=== PATIENT | female | born 1975 | race Caucasian/White ===

== ENCOUNTER 2016-09-23 23:04 | Emergency (ER) | payer BC ==
[2016-09-23] MEDS ORDERED: BABY ASPIRIN 81 MG CHEW PO ONE (23:20)
[2016-09-23] MEDS ORDERED: Nitrostat 0.4 MG (ED) SL ONE ×2 (23:20→23:34)
[2016-09-23 23:22] VITALS: O2SAT 98
[2016-09-23] MEDS ORDERED: GI COCKTAIL 60ML (Belladonn/Phenobarb/Lidoc PO ONE (23:23)
--- NOTE | 2016-09-23 23:29 | ERPHSYRPT ---
- History of Present Illness Time Seen by Provider: 09/23/16 23:11 Source: patient Exam Limitations: no limitations Patient Subjective Stated Complaint: PT STATES AFTER WORK THIS EVENING SHE BEGAN HAVING PAIN IN THE CENTER OF HER CHEST THAT RADIATES TO HER BACK. PT COMPLAINS OF SOB. Triage Nursing Assessment: PT IS AOX3, AMBULATORY TO COT WITH NO DIFFICULTIES, RESPS ARE EASY AND NON LABORED, SKIN IS PWD, PULSES ARE STRONG AND EQUAL, HEART SOUNDS ARE NORMAL, ABDOMEN IS SOFT AND NONTENDER. Physician History: FOR THE PAST 20 MINUTES PT HAS HAD SHARP MID ANTERIOR CHEST PAIN RADIATING TO THE BACK WITH NAUSEA AND SHORTNESS OF AIR. PT DENIES FEVER, VOMITING, DIAPHORESIS. Allergies/Adverse Reactions: No Known Drug Allergies Allergy (Verified 09/23/16 23:22) Home Medications: Levothyroxine Sodium 50 Mcg [Synthroid 50 Mcg] 50 mcg PO DAILY 11/16/12 [ History] Alprazolam 0.25 mg [xanAX 0.25 MG] 0.25 mg PO TID PRN 09/23/16 [History] Dextroamphetamine/Amphetamine [Adderall 20 mg Tablet] 20 mg PO DAILY 09/23/16 [ History] Lisinopril 5 mg PO DAILY 09/23/16 [History] Meloxicam [Mobic] 15 mg PO DAILY PRN 09/23/16 [History] Hx Tetanus, Diphtheria Vaccination/Date Given: Yes Hx Influenza Vaccination/Date Given: No Hx Pneumococcal Vaccination/Date Given: No Immunizations Up to Date: Yes - Review of Systems Constitutional: No Fever Respiratory: Dyspnea Cardiac: Chest Pain Abdominal/Gastrointestinal: Nausea, No Abdominal Pain, No Vomiting Endocrine: No Excessive Sweating All Other Systems: Reviewed and Negative - Past Medical History Pertinent Past Medical History: Yes Neurological History: Migraines ENT History: No Pertinent History Cardiac History: No Pertinent History Respiratory History: Asthma Endocrine Medical History: Hypothyroidism Musculoskeletal History: No Pertinent History GI Medical History: No Pertinent History History: No Pertinent History Psycho-Social History: Depression Female Reproductive Disorders: Abnormal Uterine Bleeding - Past Surgical History Past Surgical History: Yes Neuro Surgical History: No Pertinent History Cardiac: No Pertinent History Respiratory: No Pertinent History Gastrointestinal: No Pertinent History Genitourinary: No Pertinent History Musculoskeletal: Orthopedic Surgery Female Surgical History: Section Other Surgical History: THERMAL ABLATION - Social History Smoking Status: Former smoker How long have you smoked: 20 YEARS Exposure to second hand smoke: Yes Drug Use: none Patient Lives Alone: No - Female History Hx Last Menstrual Period: ABLATION Hx Now: No - Nursing Vital Signs Nursing Vital Signs: Initial Vital Signs Temperature 98.3 F Temperature Source Oral Pulse Rate [] 94 Pulse Rate 92 Respiratory Rate 20 Blood Pressure [] 134/83 Pain Intensity 0 - Physical Exam General Appearance: alert, anxiety Eye Exam: PERRL/EOMI Ears, Nose, Throat Exam: TMs normal, moist mucous membranes, pharyngeal erythema Neck Exam: normal inspection Respiratory Exam: lungs clear Cardiovascular Exam: normal heart sounds Gastrointestinal/Abdomen Exam: soft, normal bowel sounds Back Exam: normal range of motion Extremity Exam: normal inspection Neurologic Exam: alert, cooperative Skin Exam: warm, dry SpO2 Interpretation: normal SpO2: 98 Oxygen Delivery: Room Air - Course Nursing assessment & vital signs reviewed: Yes EKG Interpreted by Me: RATE (92), Sinus Rhythm, NORMAL AXIS, NORMAL INTERVALS - Radiology Exams Chest X-ray Interpretation: Interpreted by me, No Pneumonia Ordered Tests: Active Orders 24 hr Category Date Time Status Clean Catch Urine Specimen STAT Care 09/23/16 23:20 Active EKG-ER Only STAT Care 09/23/16 23:20 Active IV Insertion STAT Care 09/23/16 23:20 Active CHEST 1 VIEW (PORTABLE) Stat Exams 09/23/16 23:21 Ordered AMYLASE Stat Lab 09/23/16 23:30 Completed CBC W DIFF Stat Lab 09/23/16 23:30 Completed CMP Stat Lab 09/23/16 23:30 Completed LIPASE Stat Lab 09/23/16 23:30 Completed MAGNESIUM Stat Lab 09/23/16 23:30 Completed NT PRO BNP Stat Lab 09/23/16 23:30 Completed TROPONIN Q3H Lab 09/23/16 23:30 Completed TROPONIN Q3H Lab 09/24/16 02:30 Ordered TROPONIN Q3H Lab 09/24/16 05:30 Ordered TROPONIN Q3H Lab 09/24/16 08:30 Ordered TROPONIN Q3H Lab 09/24/16 11:30 Ordered UA W/ MICROSCOPIC Stat Lab 09/23/16 23:50 Completed Urine Triage Profile Stat Lab 09/23/16 23:50 Completed Medication Summary Discontinued Medications Generic Name Dose Route Start Last Admin Trade Name Freq PRN Reason Stop Dose Admin Al Hydrox/Mg Hydrox/Simethicone Confirm 09/23/16 23:34 Maalox Es 30 Ml Unit Dose Administered 09/23/16 23:35 Dose 30 ml .ROUTE .STK-MED ONE Aspirin 324 mg 09/23/16 23:20 09/23/16 23:39 Baby Aspirin 81 Mg Chew PO 09/23/16 23:21 324 mg STAT ONE Administration Aspirin Confirm 09/23/16 23:33 Baby Aspirin 81 Mg Chew Administered 09/23/16 23:34 Dose 324 mg .ROUTE .STK-MED ONE Belladonna Alkaloids/Phenobarbital 60 ml 09/23/16 23:23 09/23/16 23:39 Gi Cocktail 60ml (Belladonn/Phenobarb/Lidoc* PO 09/23/16 23:24 60 ml STAT ONE Administration Belladonna Alkaloids/Phenobarbital Confirm 09/23/16 23:35 Donnatol Liquid Administered 09/23/16 23:36 Dose 64.8 mg .ROUTE .STK-MED ONE Lidocaine HCl Confirm 09/23/16 23:34 Xylocaine Hcl Viscous * Administered 09/23/16 23:35 Dose 20 ml .ROUTE .STK-MED ONE Nitroglycerin 0.4 mg 09/23/16 23:20 09/23/16 23:39 Nitrostat 0.4 Mg (Ed) SL 09/23/16 23:21 0.4 mg STAT ONE Administration Nitroglycerin Confirm 09/23/16 23:34 Nitrostat 0.4 Mg (Ed) Administered 09/23/16 23:35 Dose 0.4 mg SL .STK-MED ONE Potassium Chloride 10 meq 09/24/16 00:05 09/24/16 00:12 Klor Con 10 Meq PO 09/24/16 00:06 10 meq STAT ONE Administration Potassium Chloride Confirm 09/24/16 00:11 Klor Con 10 Meq Administered 09/24/16 00:12 Dose 10 meq PO .STK-MED ONE Lab/Rad Data: Laboratory Result Diagrams 09/23/16 23:30 09/23/16 23:30 Laboratory Results 09/23/16 09/23/16 09/23/16 Range/Units 23:50 23:50 23:30 WBC (4.0-10.5) K/mm3 RBC (4.1-5.4) M/mm3 Hgb (12.0-16.0) gm/dl Hct (35-47) % MCV (78-100) fl MCH (26-32) pg MCHC (32-36) g/dl RDW (11.5-14.0) % Plt Count (150-450) K/mm3 MPV (6-9.5) fl Gran % (36.0-66.0) % Lymphocytes % (24.0-44.0) % Monocytes % (0.0-12.0) % Eosinophils % (0.00-5.0) % Basophils % (0.0-0.4) % Basophils # (0-0.4) Sodium (136-145) mEq/L Potassium (3.5-5.1) mEq/L Chloride (98-107) mEq/L Carbon Dioxide (21-32) mEq/L Anion Gap (5-15) MEQ/L BUN (9-20) mg/dL Creatinine (0.55-1.30) mg/dl Estimated GFR ML/MIN Glucose (70-110) MG/DL Calcium (8.5-10.1) mg/dL Magnesium (1.8-2.4) mg/dL Total Bilirubin (0.2-1.0) mg/dL AST (15-37) U/L ALT (12-78) U/L Alkaline Phosphatase (46-116) U/L Troponin I < 0.017 (0.000-0.056) ng/ml NT-Pro-B Natriuret Pep (0-125) pg/ml Serum Total Protein (6.4-8.2) gm/dL Albumin (3.4-5.0) g/dL Amylase (25-115) U/L Lipase (73-393) U/L Ur Collection Type CLEAN CATCH Urine Color YELLOW (YELLOW) Urine Appearance CLEAR (CLEAR) Urine pH 5.5 (5-6) Ur Specific [place] 1.025 (1.005-1.025) Urine Protein NEGATIVE (Negative) Urine Glucose (UA) NEGATIVE (NEGATIVE) mg/dL Urine Ketones NEGATIVE (NEGATIVE) Urine Nitrite NEGATIVE (NEGATIVE) Urine Bilirubin NEGATIVE (NEGATIVE) Urine Urobilinogen 0.2 (0-1) mg/dL Urine WBC (Auto) NEGATIVE (NEGATIVE) Urine RBC (Auto) SMALL (0-5) Jhony/ul Urine Microscopic RBC 2-5 (0-2) /HPF Ur Epithelial Cells FEW (FEW) /HPF Urine Bacteria RARE (NEGATIVE) /HPF Urine Mucus SLIGHT (NEGATIVE) /HPF Urine Opiates Level NEG. (NEGATIVE) Ur Methadone NEG. (NEGATIVE) Urine Barbiturates NEG. (NEGATIVE) Ur Phencyclidine (PCP) NEG. (NEGATIVE) Urine Amphetamine POS. (NEGATIVE) U Benzodiazepine Level NEG. (NEGATIVE) Urine Cocaine NEG. (NEGATIVE) Urine Marijuana (THC) NEG. (NEGATIVE) Specimen Received [id number] 09/23/16 09/23/16 Range/Units 23:30 23:30 WBC 11.4 H (4.0-10.5) K/mm3 RBC 4.07 L (4.1-5.4) M/mm3 Hgb 13.1 (12.0-16.0) gm/dl Hct 39.7 (35-47) % MCV 97.5 (78-100) fl MCH 32.1 H (26-32) pg MCHC 33.0 (32-36) g/dl RDW 12.9 (11.5-14.0) % Plt Count 333 (150-450) K/mm3 MPV 8.7 (6-9.5) fl Gran % 52.9 (36.0-66.0) % Lymphocytes % 33.5 (24.0-44.0) % Monocytes % 8.8 (0.0-12.0) % Eosinophils % 4.4 (0.00-5.0) % Basophils % 0.4 (0.0-0.4) % Basophils # 0.05 (0-0.4) Sodium 143 (136-145) mEq/L Potassium 3.3 L (3.5-5.1) mEq/L Chloride 106 (98-107) mEq/L Carbon Dioxide 21.8 (21-32) mEq/L Anion Gap 18.5 H (5-15) MEQ/L BUN 13 (9-20) mg/dL Creatinine 0.89 (0.55-1.30) mg/dl Estimated GFR > 60 ML/MIN Glucose 69 L (70-110) MG/DL Calcium 9.0 (8.5-10.1) mg/dL Magnesium 2.3 (1.8-2.4) mg/dL Total Bilirubin 0.30 (0.2-1.0) mg/dL AST 69 H (15-37) U/L ALT 54 (12-78) U/L Alkaline Phosphatase 67 (46-116) U/L Troponin I (0.000-0.056) ng/ml NT-Pro-B Natriuret Pep 16 (0-125) pg/ml Serum Total Protein 7.4 (6.4-8.2) gm/dL Albumin 3.6 (3.4-5.0) g/dL Amylase 34 (25-115) U/L Lipase 103 (73-393) U/L Ur Collection Type Urine Color (YELLOW) Urine Appearance (CLEAR) Urine pH (5-6) Ur Specific [place] (1.005-1.025) Urine Protein (Negative) Urine Glucose (UA) (NEGATIVE) mg/dL Urine Ketones (NEGATIVE) Urine Nitrite (NEGATIVE) Urine Bilirubin (NEGATIVE) Urine Urobilinogen (0-1) mg/dL Urine WBC (Auto) (NEGATIVE) Urine RBC (Auto) (0-5) Jhony/ul Urine Microscopic RBC (0-2) /HPF Ur Epithelial Cells (FEW) /HPF Urine Bacteria (NEGATIVE) /HPF Urine Mucus (NEGATIVE) /HPF Urine Opiates Level (NEGATIVE) Ur Methadone (NEGATIVE) Urine Barbiturates (NEGATIVE) Ur Phencyclidine (PCP) (NEGATIVE) Urine Amphetamine (NEGATIVE) U Benzodiazepine Level (NEGATIVE) Urine Cocaine (NEGATIVE) Urine Marijuana (THC) (NEGATIVE) Specimen Received - Progress Progress Note: 09/24/16 00:43 PT FEELS BETTER AFTER THE GI COCKTAIL. - Departure Time of Disposition: 00:59 Departure Disposition: Home Clinical Impression: CHEST PAIN Condition: Fair Critical Care Time: No Referrals: CADE SALAZAR [Primary Care Provider] - Instructions: Chest Pain Additional Instructions: FOLLOW UP WITH PRIVATE DOCTOR TOMORROW.
[2016-09-23 23:33] LABS: BASOPHIL % 0.4 % (0.0-0.4); Eosinophil % 4.4 % (0.00-5.0); Granulocytes % 52.9 % (36.0-66.0); Lymphocytes % 33.5 % (24.0-44.0); Mean Cell Volume 97.5 fl (78-100); Mean Platelet Volume 8.7 fl (6-9.5); Monocytes % 8.8 % (0.0-12.0); Platelet Count 333 K/mm3 (150-450); Red Blood Count 4.07 M/mm3 (4.1-5.4); Red Cell Distribution Width 12.9 % (11.5-14.0); White Blood Count 11.4 K/mm3 (4.0-10.5)
[2016-09-23] MEDS ORDERED: BABY ASPIRIN 81 MG CHEW ONE (23:33)
[2016-09-23] MEDS ORDERED: XYLOCAINE HCl Viscous ONE (23:34)
[2016-09-23] MEDS ORDERED: MAALOX ES 30 ML UNIT DOSE ONE (23:34)
[2016-09-23] MEDS ORDERED: Donnatol Liquid ONE (23:35)
[2016-09-23 23:57] VITALS: BP 134/83; PULSE 92
[2016-09-24 00:02] LABS: ALBUMIN 3.6 g/dL (3.4-5.0); ALKALINE PHOSPHATASE 67 U/L (46-116); ANION GAP 18.5 MEQ/L (5-15); BLOOD UREA NITROGEN 13 mg/dL (9-20); CHLORIDE 106 mEq/L (98-107); Carbon Dioxide 21.8 mEq/L (21-32); Glucose 69 MG/DL (70-110); LIPASE 103 U/L (73-393); MAGNESIUM 2.3 mg/dL (1.8-2.4); Potassium 3.3 mEq/L (3.5-5.1); SGOT/AST 69 U/L (15-37); SGPT/ALT 54 U/L (12-78); SODIUM 143 mEq/L (136-145); Total Protein 7.4 gm/dL (6.4-8.2)
[2016-09-24 00:04] LABS: Mean Corpuscular Hemoglobin 32.1 pg (26-32)
[2016-09-24] MEDS ORDERED: Klor Con 10 MEQ PO ONE ×2 (00:05→00:11)
[2016-09-24 00:57] LABS: COMPLETE URINE MICROSCOPIC? YES; Collection Type CLEAN CATCH; Mucus SLIGHT /HPF (NEGATIVE); Ph 5.5 (5-6)
[2016-09-24 00:58] LABS: ADD URINE CULTURE? NO (NO); Bacteria RARE /HPF (NEGATIVE); Epithelial Cells FEW /HPF (FEW)
--- NOTE | 2016-09-24 07:47 | XRAY ---
Indication: Short of breath and chest pain. Comparison: None Portable apical lordotic chest is negative for focal infiltrate, consolidation, or large effusion. Heart is not enlarged. Bony thorax intact. Impression: Nonacute chest.
== END 2016-09-24 01:15 | disposition home or self-care (01) ==
LOC: ED 23:04
DX: R07.9 Chest pain, unspecified (principal); R06.00 Dyspnea, unspecified; R11.0 Nausea
CPT/HCPCS: 36000; 36415; 71010; 80053; 80307; 81000; 82150; 83690; 83735; 83880; 84484; 85025; 93005; 99285; A9270-GY

== ENCOUNTER 2017-11-27 04:29 | Emergency (ER) | payer BC ==
[2017-11-27 04:51] VITALS: O2SAT 100
[2017-11-27] MEDS ORDERED: Sodium Chloride 0.9% 1000 ML 1,000 ML IV STA (05:09)
--- NOTE | 2017-11-27 05:09 | ERPHSYRPT ---
- History of Present Illness Time Seen by Provider: 11/27/17 04:53 Source: patient Exam Limitations: no limitations Patient Subjective Stated Complaint: pt stated that she came home from work and drank a rum and coke but then started not feeling right, became diaphoretic and then went to the restroom and felt like she was going to vomit and like she was going to pass out, legs became extremely weak and couldn't move Triage Nursing Assessment: pt stated that she came home from work and drank a rum and coke but then started not feeling right, became diaphoretic and then went to the restroom and felt like she was going to vomit and like she was going to pass out, legs became extremely weak and couldn't move, screamed for but he states she was not very loud, last BM yesterday, Accucheck 129, vitals wnl, no difficulties with strength, gait steady, blood pressure at time of incident 100/56 and gave her some honey and animal crackers and her BP went up to 123/75, pt reports having a recurrent pain across her chest and sternum in the recent past and she was feeling it tonite. Physician History: The patient is a 42-year-old female with her complaining that she became sweaty, nauseated, felt like passing out, and very pale immediately after urinating while on the toilet this morning. She came home from work at 2 AM and couldn't get to sleep. She tried playing Candy crush on the phone. She then took 2-1/2 shots of Capt. and Coke. She sat on the toilet to urinate when the problem hit her. She tried standing up after becoming sweaty. It was hard for her to stand and she felt like she was going to pass out. She looked on the Internet to see what might be the cause. They found a number of bad things and her wanted her to be checked out. Her gave her animal crackers and honey. Her took her blood pressure immediately after the event and found it to be low with a low heart rate. She now is feeling much better. Her color is back. Her past medical history is significant for hypertension, hypothyroidism, and anxiety. Timing/Duration: today, resolved prior to arrival, sudden, improved Severity: moderate Modifying Factors: Improves With: eating Associated Symptoms: diaphoresis, syncope (near) Allergies/Adverse Reactions: No Known Drug Allergies Allergy (Verified 11/27/17 04:51) Home Medications: Levothyroxine Sodium 50 Mcg [Synthroid 50 Mcg] 50 mcg PO DAILY 11/16/12 [ History] Alprazolam 0.25 mg [xanAX 0.25 MG] 0.25 mg PO TID PRN 09/23/16 [History] Dextroamphetamine/Amphetamine [Adderall 20 mg Tablet] 30 mg PO DAILY 09/23/16 [ History] Lisinopril 5 mg PO DAILY 09/23/16 [History] Meloxicam [Mobic] 15 mg PO DAILY PRN 09/23/16 [History] Hx Tetanus, Diphtheria Vaccination/Date Given: Yes Hx Influenza Vaccination/Date Given: No Hx Pneumococcal Vaccination/Date Given: No - Review of Systems Constitutional: No Fever, No Chills Eyes: No Symptoms Ears, Nose, & Throat: No Symptoms Respiratory: No Cough, No Dyspnea Cardiac: Syncope Abdominal/Gastrointestinal: Nausea Genitourinary Symptoms: No Dysuria Musculoskeletal: No Back Pain, No Neck Pain Skin: No Rash Neurological: No Dizziness, No Focal Weakness, No Sensory Changes Psychological: No Symptoms Endocrine: No Symptoms Hematologic/Lymphatic: No Symptoms Immunological/Allergic: No Symptoms All Other Systems: Reviewed and Negative - Past Medical History Pertinent Past Medical History: Yes Neurological History: Migraines ENT History: No Pertinent History Cardiac History: No Pertinent History Respiratory History: Asthma Endocrine Medical History: Hypothyroidism Musculoskeletal History: No Pertinent History GI Medical History: No Pertinent History History: No Pertinent History Psycho-Social History: Depression Female Reproductive Disorders: Abnormal Uterine Bleeding Other Medical History: hashimotos - Past Surgical History Past Surgical History: Yes Neuro Surgical History: No Pertinent History Cardiac: No Pertinent History Respiratory: No Pertinent History Gastrointestinal: No Pertinent History Genitourinary: No Pertinent History Musculoskeletal: Orthopedic Surgery Female Surgical History: Section Other Surgical History: THERMAL ABLATION, cysts removed from head - Social History Smoking Status: Current every day smoker How long have you smoked: 20 YEARS Exposure to second hand smoke: Yes Drug Use: none Patient Lives Alone: No - Female History Hx Now: No (ablasion and tubal) - Nursing Vital Signs Nursing Vital Signs: Initial Vital Signs Temperature 97.7 F 11/27/17 04:35 Pulse Rate 94 H 07/31/18 04:35 Blood Pressure 136/71 11/27/17 04:35 O2 Sat by Pulse Oximetry 100 11/27/17 04:35 Pain Scale Pain Intensity 0 - Physical Exam General Appearance: no apparent distress, alert Eye Exam: PERRL/EOMI, eyes nml inspection Ears, Nose, Throat Exam: normal ENT inspection, TMs normal, pharynx normal, moist mucous membranes Neck Exam: normal inspection, non-tender, supple, full range of motion Respiratory Exam: normal breath sounds, lungs clear, No respiratory distress Cardiovascular Exam: regular rate/rhythm, normal heart sounds, normal peripheral pulses Gastrointestinal/Abdomen Exam: soft, normal bowel sounds, No tenderness, No mass Pelvic Exam: not done Rectal Exam: not done Back Exam: normal inspection, normal range of motion, No CVA tenderness, No vertebral tenderness Extremity Exam: normal inspection, normal range of motion, pelvis stable Neurologic Exam: alert, oriented x 3, cooperative, normal mood/affect, nml cerebellar function, nml station & gait, sensation nml, No motor deficits Skin Exam: normal color, warm, dry, No rash Lymphatic Exam: No adenopathy SpO2 Interpretation: normal SpO2: 100 Oxygen Delivery: Room Air - Course EKG Interpreted by Me: RATE, Sinus Rhythm, NORMAL AXIS, NORMAL INTERVALS, NORMAL QRS, NORMAL ST-T, Other (no change comp to EKG 09/23/16.) - Radiology Exams Chest X-ray Interpretation: Interpreted by me, Negative (stable nonacute chest. comp 2v chest 05/24/17.) Ordered Tests: Active Orders 24 hr Category Date Time Status Clean Catch Urine Specimen STAT Care 11/27/17 05:09 Ordered EKG-ER Only STAT Care 11/27/17 05:09 Ordered IV Insertion STAT Care 11/27/17 05:09 Ordered CHEST 2 VIEWS (PA AND LAT) Stat Exams 11/27/17 05:10 Ordered BMP Stat Lab 11/27/17 05:09 Ordered CBC W DIFF Stat Lab 11/27/17 05:09 Ordered CULTURE,URINE Stat Lab 11/27/17 05:20 Received HCG QUALITATIVE,SERUM Stat Lab 11/27/17 Ordered TROPONIN Q3H Lab 11/27/17 05:15 Ordered TROPONIN Q3H Lab 11/27/17 08:15 Ordered TROPONIN Q3H Lab 11/27/17 11:15 Ordered TROPONIN Q3H Lab 11/27/17 14:15 Ordered TROPONIN Q3H Lab 11/27/17 17:15 Ordered UA W/ MICROSCOPIC Stat Lab 11/27/17 05:20 Completed Medication Summary Generic Name Dose Route Start Last Admin Trade Name Andrea PRN Reason Stop Dose Admin Sodium Chloride 1,000 mls @ 999 mls/hr 11/27/17 05:09 11/27/17 05:18 Sodium Chloride 0.9% 1000 Ml IV 11/27/17 06:09 999 mls/hr .Q1H1M STA Administration Discontinued Medications Generic Name Dose Route Start Last Admin Trade Name Freq PRN Reason Stop Dose Admin Sodium Chloride Confirm 11/27/17 05:15 Sodium Chloride 0.9% 1000 Ml Administered 11/27/17 05:16 Dose 1,000 mls @ ud .ROUTE .STK-MED ONE Lab/Rad Data: Laboratory Result Diagrams 11/27/17 05:00 11/27/17 05:00 Laboratory Results 11/27/17 11/27/17 11/27/17 Range/Units 05:20 05:00 05:00 WBC (4.0-10.5) K/mm3 RBC (4.1-5.4) M/mm3 Hgb (12.0-16.0) gm/dl Hct (35-47) % MCV (78-100) fl MCH (26-32) pg MCHC (32-36) g/dl RDW (11.5-14.0) % Plt Count (150-450) K/mm3 MPV (6-9.5) fl Gran % (36.0-66.0) % Eos # (Auto) (0-0.5) Absolute Lymphs (auto) (1.0-4.6) Absolute Monos (auto) (0.0-1.3) Lymphocytes % (24.0-44.0) % Monocytes % (0.0-12.0) % Eosinophils % (0.00-5.0) % Basophils % (0.0-0.4) % Absolute Granulocytes (1.4-6.9) Basophils # (0-0.4) Sodium 141 (137-145) mmol/L Potassium 3.6 (3.5-5.1) mmol/L Chloride 102 (98-107) mmol/L Carbon Dioxide 26 (22-30) mmol/L Anion Gap 16.5 H (5-15) MEQ/L BUN 19 H (7-17) mg/dL Creatinine 0.86 (0.52-1.04) mg/dL Estimated GFR > 60.0 ML/MIN Glucose 102 (74-106) mg/dL Calcium 9.6 (8.4-10.2) mg/dL Serum , Qual NEGATIVE (Negative) Ur Collection Type CCMS Urine Color YELLOW (YELLOW) Urine Appearance CLEAR (CLEAR) Urine pH 6.0 (5-6) Ur Specific [place] 1.015 (1.005-1.025) Urine Protein 30 (Negative) Urine Ketones NEGATIVE (NEGATIVE) Urine Blood TRACE NON-HEM (0-5) Jhony/ul Urine Nitrite NEGATIVE (NEGATIVE) Urine Bilirubin NEGATIVE (NEGATIVE) Urine Urobilinogen NORMAL (0-1) mg/dL Ur Leukocyte Esterase NEGATIVE (NEGATIVE) Urine Microscopic RBC 0-2 (0-2) /HPF Urine Microscopic WBC 0-2 (0-5) /HPF Ur Epithelial Cells MODERATE (FEW) /HPF Urine Bacteria RARE (NEGATIVE) /HPF Urine Mucus SLIGHT (NEGATIVE) /HPF Urine Culture Reflexed YES (NO) Urine Glucose NEGATIVE (NEGATIVE) mg/dL Specimen Received 11-27-17 [id number] 11/27/17 Range/Units 05:00 WBC 14.9 H (4.0-10.5) K/mm3 RBC 4.71 (4.1-5.4) M/mm3 Hgb 15.4 (12.0-16.0) gm/dl Hct 46.5 (35-47) % MCV 98.7 (78-100) fl MCH 32.7 H (26-32) pg MCHC 33.1 (32-36) g/dl RDW 13.5 (11.5-14.0) % Plt Count 373 (150-450) K/mm3 MPV 9.2 (6-9.5) fl Gran % 67.2 H (36.0-66.0) % Eos # (Auto) 0.29 (0-0.5) Absolute Lymphs (auto) 3.72 (1.0-4.6) Absolute Monos (auto) 0.88 (0.0-1.3) Lymphocytes % 24.9 (24.0-44.0) % Monocytes % 5.9 (0.0-12.0) % Eosinophils % 1.9 (0.00-5.0) % Basophils % 0.1 (0.0-0.4) % Absolute Granulocytes 10.02 H (1.4-6.9) Basophils # 0.02 (0-0.4) Sodium (137-145) mmol/L Potassium (3.5-5.1) mmol/L Chloride (98-107) mmol/L Carbon Dioxide (22-30) mmol/L Anion Gap (5-15) MEQ/L BUN (7-17) mg/dL Creatinine (0.52-1.04) mg/dL Estimated GFR ML/MIN Glucose (74-106) mg/dL Calcium (8.4-10.2) mg/dL Serum , Qual (Negative) Ur Collection Type Urine Color (YELLOW) Urine Appearance (CLEAR) Urine pH (5-6) Ur Specific [place] (1.005-1.025) Urine Protein (Negative) Urine Ketones (NEGATIVE) Urine Blood (0-5) Jhony/ul Urine Nitrite (NEGATIVE) Urine Bilirubin (NEGATIVE) Urine Urobilinogen (0-1) mg/dL Ur Leukocyte Esterase (NEGATIVE) Urine Microscopic RBC (0-2) /HPF Urine Microscopic WBC (0-5) /HPF Ur Epithelial Cells (FEW) /HPF Urine Bacteria (NEGATIVE) /HPF Urine Mucus (NEGATIVE) /HPF Urine Culture Reflexed (NO) Urine Glucose (NEGATIVE) mg/dL Specimen Received - Progress Progress: improved Counseled pt/family regarding: lab results, diagnosis, rad results - Departure Time of Disposition: 05:44 Departure Disposition: Home Clinical Impression: Micturition syncope Condition: Stable Critical Care Time: No Referrals: CADE SALAZAR [Primary Care Provider] - Additional Instructions: You had a near fainting episode while urinating. All of your laboratory results , chest x-ray, and EKG were normal except a mildly elevated white count. You were given fluids by IV in the ER. Stay well hydrated. Follow-up as needed with your primary medical doctor.
[2017-11-27] MEDS ORDERED: Sodium Chloride 0.9% 1000 ML 1,000 ML ONE (05:15)
[2017-11-27 05:20] LABS: BASOPHIL % 0.1 % (0.0-0.4); Basophil (Absolute #) 0.02 (0-0.4); Eosinophil % 1.9 % (0.00-5.0); Eosinophil (Absolute #) 0.29 (0-0.5); Granulocyte Absolute (ANC) 10.02 (1.4-6.9); Granulocytes % 67.2 % (36.0-66.0); Hematocrit 46.5 % (35-47); Hemoglobin 15.4 gm/dl (12.0-16.0); Lymphocyte (Absolute #) 3.72 (1.0-4.6); Lymphocytes % 24.9 % (24.0-44.0); Mean Cell Volume 98.7 fl (78-100); Mean Corpuscular Hemoglobin 32.7 pg (26-32); Mean Corpuscular Hgb Concent. 33.1 g/dl (32-36); Mean Platelet Volume 9.2 fl (6-9.5); Monocyte (Absolute #) 0.88 (0.0-1.3); Monocytes % 5.9 % (0.0-12.0); Platelet Count 373 K/mm3 (150-450); Red Blood Count 4.71 M/mm3 (4.1-5.4); Red Cell Distribution Width 13.5 % (11.5-14.0); White Blood Count 14.9 K/mm3 (4.0-10.5)
[2017-11-27 05:33] LABS: ANION GAP 16.5 MEQ/L (5-15); BLOOD UREA NITROGEN 19 mg/dL (7-17); CHLORIDE 102 mmol/L (98-107); Calcium 9.6 mg/dL (8.4-10.2); Carbon Dioxide 26 mmol/L (22-30); Creatinine 1 0.86 mg/dL (0.52-1.04); Glucose 102 mg/dL (74-106); Potassium 3.6 mmol/L (3.5-5.1); SODIUM 141 mmol/L (137-145)
[2017-11-27 05:39] VITALS: BP 111/70
[2017-11-27 05:39] LABS: Appearance CLEAR (CLEAR); Bilirubin NEGATIVE (NEGATIVE); Blood TRACE NON-HEM Ery/ul (0-5); Epithelial Cells MODERATE /HPF (FEW); Glucose NEGATIVE (NEGATIVE); Ketones NEGATIVE (NEGATIVE); Leukocyte Esterase NEGATIVE (NEGATIVE); Mucus SLIGHT /HPF (NEGATIVE); Nitrite NEGATIVE (NEGATIVE); Protein,Urine Dip 30 (Negative); RBC 0-2 /HPF (0-2); Specific Gravity 1.015 (1.005-1.025); Urobilinogen NORMAL mg/dL (0-1); WBC 0-2 /HPF (0-5)
[2017-11-27 05:40] LABS: Bacteria RARE /HPF (NEGATIVE)
[2017-11-27 05:58] VITALS: PULSE 91
--- NOTE | 2017-11-27 08:47 | XRAY ---
Indication: Chest pain, nausea, and dizziness. Comparison: May 24, 2017. PA/lateral chest is clear. Heart and mediastinal structures within normal limits. Bony thorax intact. Impression: Nonacute chest.
== END 2017-11-27 06:05 | disposition home or self-care (01) ==
LOC: ED 04:29
DX: R55 Syncope and collapse (principal); I10 Essential (primary) hypertension; E03.9 Hypothyroidism, unspecified; F41.9 Anxiety disorder, unspecified
CPT/HCPCS: 36000; 36415; 71046; 80048; 81000; 84484; 84703; 85025; 87086; 93005; 96374; 99284

== ENCOUNTER 2018-10-22 19:43 | Emergency (ER) | payer BC ==
[2018-10-22] MEDS ORDERED: BABY ASPIRIN 81 MG CHEW PO ONE (19:50)
[2018-10-22] MEDS ORDERED: Nitrostat 0.4 MG (ED) SL ONE ×2 (19:50→20:47)
[2018-10-22] MEDS ORDERED: Sodium Chloride 0.9% 1000 ML 1,000 ML IV SCH (20:00)
[2018-10-22 20:08] LABS: BASOPHIL % 0.3 % (0.0-0.4); Basophil (Absolute #) 0.04 (0-0.4); Eosinophil % 1.9 % (0.00-5.0); Eosinophil (Absolute #) 0.27 (0-0.5); Granulocyte Absolute (ANC) 10.91 (1.4-6.9); Granulocytes % 75.7 % (36.0-66.0); Hematocrit 41.6 % (35-47); Hemoglobin 13.6 gm/dl (12.0-16.0); Lymphocyte (Absolute #) 2.16 (1.0-4.6); Mean Cell Volume 99.3 fl (78-100); Mean Corpuscular Hemoglobin 32.5 pg (26-32); Mean Corpuscular Hgb Concent. 32.7 g/dl (32-36); Mean Platelet Volume 8.7 fl (6-9.5); Monocytes % 7.1 % (0.0-12.0); Platelet Count 366 K/mm3 (150-450); Red Blood Count 4.19 M/mm3 (4.1-5.4); Red Cell Distribution Width 12.6 % (11.5-14.0); White Blood Count 14.4 K/mm3 (4.0-10.5)
[2018-10-22] MEDS ORDERED: MORPHINE SULFATE 2 MG INJ IV ONE (20:18)
--- NOTE | 2018-10-22 20:18 | ERPHSYRPT ---
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 Pt states she was sitting working on computer when it started. described substernal radiated to lt chest and lt jaw. denies cardiac hx. pt had surgery approx 3 weeks ago to cervical spine and has been "tightness" in her throat since 2 days ago. Triage Nursing Assessment: [place]/warm/dry, resp easy, a&ox4, steady gait, pt appears anxious, no distress noted. Physician History: 43 y/o obese white female smoker of cigarettes, h/o htn, anxiety issues and recent cervical spine surgery(09/27/18) presents with anterior neck pain for 3 to 4 days. that pain has radiated to anterior chest. no soa, no abd pain. pt has no known cardiac hx. Timing/Duration: day(s) (3 to 4), gradual onset, worse Activities at Onset: none Quality: pressure, tightness Location: substernal, central Chest Pain Radiation: jaw, neck Severity of Pain-Max: moderate Severity of Pain-Current: moderate Modifying Factors: Improves With: nothing Associated Symptoms: denies symptoms Prior Chest Pain/Cardiac Workup: no prior chest pain Nitro Today/Relief: no nitro taken today Aspirin Treatment Today: no aspirin today Allergies/Adverse Reactions: No Known Drug Allergies Allergy (Verified 10/22/18 19:48) Home Medications: Levothyroxine Sodium 50 Mcg [Synthroid 50 Mcg] 50 mcg PO DAILY 11/16/12 [ History] Alprazolam 0.25 mg [xanAX 0.25 MG] 0.25 mg PO TID PRN 09/23/16 [History] Dextroamphetamine/Amphetamine [Adderall 20 mg Tablet] 30 mg PO DAILY 09/23/16 [ History] Lisinopril 5 mg PO DAILY 09/23/16 [History] Diazepam [Valium] 5 mg PO Q6H PRN PRN 10/22/18 [History] Oxycodone HCl/Acetaminophen [Oxycodone-Acetaminophen 5-325] 1 tab PO Q6H PRN PRN 10/22/18 [History] Hx Tetanus, Diphtheria Vaccination/Date Given: Yes Hx Influenza Vaccination/Date Given: No Hx Pneumococcal Vaccination/Date Given: No - Review of Systems Constitutional: No Symptoms Eyes: No Symptoms Ears, Nose, & Throat: No Symptoms Respiratory: No Symptoms Cardiac: Chest Pain Abdominal/Gastrointestinal: No Symptoms Genitourinary Symptoms: No Symptoms Musculoskeletal: No Symptoms Skin: No Symptoms Neurological: No Symptoms Psychological: No Symptoms Endocrine: No Symptoms Hematologic/Lymphatic: No Symptoms Immunological/Allergic: No Symptoms All Other Systems: Reviewed and Negative - Past Medical History Pertinent Past Medical History: Yes Neurological History: Migraines ENT History: No Pertinent History Cardiac History: Hypertension Respiratory History: Asthma Endocrine Medical History: Hypothyroidism Musculoskeletal History: No Pertinent History GI Medical History: No Pertinent History History: No Pertinent History Psycho-Social History: Anxiety, Attention Deficit Disorder, Depression, Other Female Reproductive Disorders: Abnormal Uterine Bleeding Other Medical History: hashimotos - Past Surgical History Past Surgical History: Yes Neuro Surgical History: No Pertinent History Cardiac: No Pertinent History Respiratory: No Pertinent History Gastrointestinal: No Pertinent History Genitourinary: No Pertinent History Musculoskeletal: Orthopedic Surgery Female Surgical History: Section Other Surgical History: THERMAL ABLATION, cysts removed from head, c-spine, collar bone - Social History Smoking Status: Current every day smoker How long have you smoked: 20 YEARS Exposure to second hand smoke: Yes Drug Use: none Patient Lives Alone: No - Female History Hx Last Menstrual Period: ablation Hx Now: No - Nursing Vital Signs Nursing Vital Signs: Initial Vital Signs Pulse Rate 109 H 10/22/18 19:44 Respiratory Rate 20 10/22/18 19:44 O2 Sat by Pulse Oximetry 97 10/22/18 19:44 Pain Scale Pain Intensity 7 - Physical Exam General Appearance: mild distress, alert, anxiety Eye Exam: PERRL/EOMI, eyes nml inspection Ears, Nose, Throat Exam: normal ENT inspection, moist mucous membranes Neck Exam: normal inspection, non-tender, supple, full range of motion Respiratory Exam: normal breath sounds, lungs clear, airway intact, No chest tenderness, No respiratory distress Cardiovascular Exam: tachycardia (mild) Gastrointestinal/Abdomen Exam: soft, normal bowel sounds, No tenderness Pelvic Exam: not done Rectal Exam: not done Back Exam: normal inspection, normal range of motion, CVA tenderness Extremity Exam: normal inspection, normal range of motion, pelvis stable Neurologic Exam: alert, oriented x 3, cooperative, 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 Skin Exam: normal color, warm, dry Lymphatic Exam: No adenopathy SpO2 Interpretation: normal SpO2: 97 O2 Delivery: Room Air Ordered Tests: Active Orders 24 hr Category Date Time Status Dessert Cup Machine Feeder STAT Care 10/22/18 19:48 Active EKG-ER Only STAT Care 10/22/18 19:47 Active IV Insertion STAT Care 10/22/18 19:47 Active CHEST 1 VIEW (PORTABLE) Stat Exams 10/22/18 19:48 Taken CHEST WITH CONTRAST [CT] Stat Exams 10/22/18 21:02 Taken CBC W DIFF Stat Lab 10/22/18 20:00 Completed CMP Stat Lab 10/22/18 20:00 Completed D-DIMER QUANTITATION Stat Lab 10/22/18 20:00 Completed NT PRO BNP Stat Lab 10/22/18 20:00 Completed TROPONIN Q3H Lab 10/22/18 20:00 Completed TROPONIN Q3H Lab 10/22/18 23:00 Ordered TROPONIN Q3H Lab 10/23/18 02:00 Ordered TROPONIN Q3H Lab 10/23/18 05:00 Ordered TROPONIN Q3H Lab 10/23/18 08:00 Ordered Medication Summary Generic Name Dose Route Start Last Admin Trade Name Freq PRN Reason Stop Dose Admin Sodium Chloride 1,000 mls @ 50 mls/hr 10/22/18 20:00 10/22/18 20:50 Sodium Chloride 0.9% 1000 Ml IV 11/21/18 19:59 50 mls/hr .Q20H TAMI Administration Discontinued Medications Generic Name Dose Route Start Last Admin Trade Name Freq PRN Reason Stop Dose Admin Aspirin 324 mg 10/22/18 19:50 10/22/18 20:50 Baby Aspirin 81 Mg Chew PO 10/22/18 19:51 324 mg STAT ONE Administration Aspirin Confirm 10/22/18 20:47 Baby Aspirin 81 Mg Chew Administered 10/22/18 20:48 Dose 324 mg .ROUTE .STK-MED ONE Morphine Sulfate 2 mg 10/22/18 20:18 10/22/18 20:51 Morphine Sulfate 2 Mg Inj IV 10/22/18 20:19 2 mg STAT ONE Administration Morphine Sulfate Confirm 10/22/18 20:47 Morphine Sulfate 2 Mg Inj Administered 10/22/18 20:48 Dose 2 mg .ROUTE .STK-MED ONE Nitroglycerin 0.4 mg 10/22/18 19:50 10/22/18 20:51 Nitrostat 0.4 Mg (Ed) SL 10/22/18 19:51 0.4 mg STAT ONE Administration Nitroglycerin Confirm 10/22/18 20:47 Nitrostat 0.4 Mg (Ed) Administered 10/22/18 20:48 Dose 0.4 mg SL .STK-MED ONE Lab/Rad Data: Laboratory Result Diagrams 10/22/18 20:00 10/22/18 20:00 Laboratory Results 10/22/18 10/22/18 10/22/18 Range/Units 20:00 20:00 20:00 WBC (4.0-10.5) K/mm3 RBC (4.1-5.4) M/mm3 Hgb (12.0-16.0) gm/dl Hct (35-47) % MCV (78-100) fl MCH (26-32) pg MCHC (32-36) g/dl RDW (11.5-14.0) % Plt Count (150-450) K/mm3 MPV (6-9.5) fl Gran % (36.0-66.0) % Eos # (Auto) (0-0.5) Absolute Lymphs (auto) (1.0-4.6) Absolute Monos (auto) (0.0-1.3) Lymphocytes % (24.0-44.0) % Monocytes % (0.0-12.0) % Eosinophils % (0.00-5.0) % Basophils % (0.0-0.4) % Absolute Granulocytes (1.4-6.9) Basophils # (0-0.4) D-Dimer 551 H* (215-500) ng/mL Sodium 139 (137-145) mmol/L Potassium 4.6 (3.5-5.1) mmol/L Chloride 104 (98-107) mmol/L Carbon Dioxide 25 (22-30) mmol/L Anion Gap 14.8 (5-15) MEQ/L BUN 15 (7-17) mg/dL Creatinine 0.88 (0.52-1.04) mg/dL Estimated GFR > 60.0 ML/MIN Glucose 100 (74-106) mg/dL Calcium 9.9 (8.4-10.2) mg/dL Total Bilirubin 0.30 (0.2-1.3) mg/dL AST 27 (14-36) U/L ALT 60 H (0-35) U/L Alkaline Phosphatase 76 (38-126) U/L Troponin I < 0.012 (0.000-0.034) ng/mL NT-Pro-B Natriuret Pep 38.9 (0-450) pg/mL Serum Total Protein 8.3 H (6.3-8.2) g/dL Albumin 4.5 (3.5-5.0) g/dL 10/22/18 Range/Units 20:00 WBC 14.4 H (4.0-10.5) K/mm3 RBC 4.19 (4.1-5.4) M/mm3 Hgb 13.6 (12.0-16.0) gm/dl Hct 41.6 (35-47) % MCV 99.3 (78-100) fl MCH 32.5 H (26-32) pg MCHC 32.7 (32-36) g/dl RDW 12.6 (11.5-14.0) % Plt Count 366 (150-450) K/mm3 MPV 8.7 (6-9.5) fl Gran % 75.7 H (36.0-66.0) % Eos # (Auto) 0.27 (0-0.5) Absolute Lymphs (auto) 2.16 (1.0-4.6) Absolute Monos (auto) 1.03 (0.0-1.3) Lymphocytes % 15.0 L (24.0-44.0) % Monocytes % 7.1 (0.0-12.0) % Eosinophils % 1.9 (0.00-5.0) % Basophils % 0.3 (0.0-0.4) % Absolute Granulocytes 10.91 H (1.4-6.9) Basophils # 0.04 (0-0.4) D-Dimer (215-500) ng/mL Sodium (137-145) mmol/L Potassium (3.5-5.1) mmol/L Chloride (98-107) mmol/L Carbon Dioxide (22-30) mmol/L Anion Gap (5-15) MEQ/L BUN (7-17) mg/dL Creatinine (0.52-1.04) mg/dL Estimated GFR ML/MIN Glucose (74-106) mg/dL Calcium (8.4-10.2) mg/dL Total Bilirubin (0.2-1.3) mg/dL AST (14-36) U/L ALT (0-35) U/L Alkaline Phosphatase (38-126) U/L Troponin I (0.000-0.034) ng/mL NT-Pro-B Natriuret Pep (0-450) pg/mL Serum Total Protein (6.3-8.2) g/dL Albumin (3.5-5.0) g/dL - Progress Progress: improved Air Movement: good Progress Note: 10/22/18 21:35 cxr-? rll atelectasis vs infiltrate 10/22/18 22:35 no cta evidence of pulm emboli. since pt has a cough and an elevated wbc with mild soa, i will rx cefdinir. Counseled pt/family regarding: lab results, diagnosis, rad results, smoking cessation - Departure Departure Disposition: Home Clinical Impression: Chest pain, Leukocytosis Condition: Stable Critical Care Time: No Referrals: CADE SALAZAR [Primary Care Provider] - Additional Instructions: take medications as prescribed. follow up with primary doctor for further management Prescriptions: Cefdinir 300 mg PO BID 7 Days #14 capsule
[2018-10-22 20:28] LABS: ALBUMIN 4.5 g/dL (3.5-5.0); ALKALINE PHOSPHATASE 76 U/L (38-126); ANION GAP 14.8 MEQ/L (5-15); BLOOD UREA NITROGEN 15 mg/dL (7-17); CHLORIDE 104 mmol/L (98-107); Calcium 9.9 mg/dL (8.4-10.2); Carbon Dioxide 25 mmol/L (22-30); Creatinine 1 0.88 mg/dL (0.52-1.04); Glucose 100 mg/dL (74-106); NT PRO BNP 38.9 pg/mL (0-450); Potassium 4.6 mmol/L (3.5-5.1); SGOT/AST 27 U/L (14-36); SGPT/ALT 60 U/L (0-35); SODIUM 139 mmol/L (137-145); Total Protein 8.3 g/dL (6.3-8.2)
[2018-10-22] MEDS ORDERED: BABY ASPIRIN 81 MG CHEW ONE (20:47)
[2018-10-22] MEDS ORDERED: MORPHINE SULFATE 2 MG INJ ONE (20:47)
[2018-10-22] MEDS ORDERED: Sodium Chloride 0.9% 1000 ML 1,000 ML ONE (20:48)
[2018-10-22] MEDS ORDERED: Zithromax 250 MG TABLET PO ONE (22:40)
[2018-10-22 22:41] VITALS: BP 127/80; PULSE 97; O2SAT 98
[2018-10-22] MEDS ORDERED: Zithromax 250 MG TABLET ONE (22:49)
--- NOTE | 2018-10-23 08:51 | XRAY ---
Indication: Chest pain. Elevated d-dimer. Multiple contiguous axial images obtained through the chest using 80 cc Isovue 370 contrast and PE protocol. Comparison: None There is good opacification of the pulmonary arteries to include the lobar and segmental branches. No filling defect or pulmonary embolus. Heart is not enlarged. Aorta is normal course and caliber. A few tiny left perihilar calcified nodes. No pathologic mediastinal/hilar lymphadenopathy. Lungs are inflated with minimal right middle lobe and lingula subsegmental atelectasis/scarring. No suspicious pulmonary mass, infiltrate, or effusion. Bony thorax intact with incompletely visualized lower cervical fusion surgery. Limited upper abdomen demonstrates mild diffuse fatty liver. Impression: 1. Negative pulmonary embolus. No acute cardiopulmonary abnormalities. 2. Incidental fatty liver and evidence for old granulomatous disease Comment: Preliminary interpretation was made by [facility]. No critical discrepancy. CT DI 23.69
--- NOTE | 2018-10-23 08:54 | XRAY ---
Indication: Chest pain. Comparison: November 27, 2017. Portable chest again demonstrates normal heart and lungs. Bony thorax intact with interval lower cervical fusion surgery.
== END 2018-10-22 23:00 | disposition home or self-care (01) ==
LOC: ED 19:43
DX: R07.9 Chest pain, unspecified (principal); D72.829 Elevated white blood cell count, unspecified; I10 Essential (primary) hypertension; Z72.0 Tobacco use; F41.9 Anxiety disorder, unspecified; Z79.899 Other long term (current) drug therapy; E03.9 Hypothyroidism, unspecified
CPT/HCPCS: 36000; 36415; 71045; 71260; 80053; 83880; 84484; 85025; 85379; 93005; 93041; 96360; 96361; 96374; 99285; J2270; A9270-GY